=== PATIENT | female | born 1970 | race Native Hawaiian/Other Pacific Islander ===

== ENCOUNTER → 2018-11-14 | Outpatient (CLI) | payer MEDICAID ==
[~2018-11-14] MED LIST: ATENOLOL 100MG100 MG PO; ATORVASTATIN CA40 MG PO; CYMBALTA30 MG PO; CYMBALTA60 MG PO; GABAPENTIN 100100 MG PO; NORVASC5 MG PO; ZANAFLEX4 MG PO
== END ==
LOC: M.NUC 07:22
DX: R12 Heartburn (principal)